=== PATIENT | male | born 2000 | race African-American/Black ===

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

== ENCOUNTER 2019-07-16 06:07 | Emergency (ER) | payer OTHER ==
[~2019-07-16] VITALS: Ht 175.3 cm; Wt 81.8 kg
[2019-07-16] MEDS ORDERED: KETOROLAC TROMETHAMINE 10 MG TABLET PO ONE (06:30)
[2019-07-16 07:05] LABS: BASOPHILS % (AUTO) 0.9 % (0.0-2.0); EOSINOPHILS % (AUTO) 7.5 % (1.0-6.0); HEMATOCRIT 44.9 % (41-53); HEMOGLOBIN 14.8 g/dL (13.5-17.5); LYMPHOCYTES # (AUTO) 0.9 K/uL (1.0-4.8); LYMPHOCYTES % (AUTO) 19.2 % (22.0-44.0); MEAN CORPUSCULAR HEMOGLOBIN 26.6 pg (26.0-34.0); MEAN CORPUSCULAR HGB CONC 32.9 G/dL (31.0-37.0); MEAN CORPUSCULAR VOLUME 81 fL (80-100); MONOCYTES # (AUTO) 0.4 K/uL (0.1-1.0); MONOCYTES % (AUTO) 9.6 % (2.0-9.0); NEUTROPHILS # (AUTO) 2.9 K/uL (1.8-7.7); NEUTROPHILS % (AUTO) 62.8 % (40.0-70.0); PLATELET COUNT (AUTO) 226 K/uL (150-450); RED BLOOD CELL COUNT(AUTO) 5.55 MIL/uL (4.50-5.90); RED CELL DISTRIBUTION WIDTH 14.5 % (11.5-14.5)
[2019-07-16 07:17] LABS: ANION GAP 6 mmol/L (8-16); CALCIUM, TOTAL 9.9 mg/dL (8.8-10.5); CARBON DIOXIDE 30 mmol/L (22-29); CHLORIDE 99 mmol/L (98-107); CREATININE 0.84 mg/dL (0.60-1.30); GLOMERULAR FILTR. RATE CALC > 60 mL/min (>60); GLUCOSE,RANDOM 294 mg/dL (70-110); POTASSIUM 4.1 mmol/L (3.5-5.1); SODIUM SERUM 135 mmol/L (136-145); UREA NITROGEN, BLOOD 10 mg/dL (7-18)
[2019-07-16 07:23] LABS: ALANINE AMINOTRANSFERASE 25 U/L (12-78); ALBUMIN 4.5 g/dL (3.4-5.0); ALKALINE PHOSPHATASE 102 U/L (46-116); ASPARTATE AMINOTRANSFERASE 17 U/L (15-37); BILIRUBIN,TOTAL 0.6 mg/dL (0.1-1.0); LIPASE 113 U/L (73-393); TOTAL PROTEIN, SERUM 8.8 g/dL (6.4-8.2)
[2019-07-16 08:20] VITALS: BP 111/59
[2019-07-16 08:53] LABS: APPEARANCE,URINE CLEAR (CLEAR); BILIRUBIN,URINE NEGATIVE (NEGATIVE); GLUCOSE, URINE (UA) >=1000 mg/dL (NEGATIVE); KETONES,URINE TRACE mg/dL (NEGATIVE); LEUKOCYTE ESTERASE ,URINE NEGATIVE (NEGATIVE); NITRATE,URINE NEGATIVE (NEGATIVE); OCCULT BLOOD,URINE NEGATIVE (NEGATIVE); PROTEIN,URINE NEGATIVE (NEGATIVE)
[2019-07-16 09:10] LABS: BACTERIA,URINE None Seen /HPF (None Seen); RBC,URINE None Seen /HPF (0-2); SQUAMOUS EPITHELIAL CELL,UR Rare /LPF (None Seen); WBC,URINE None Seen /HPF (0-5)
== END 2019-07-16 08:25 | disposition home or self-care (01) ==
LOC: EMS 06:07
DX: K59.00 Constipation, unspecified (principal); J45.909 Unspecified asthma, uncomplicated
CPT/HCPCS: 74176

== ENCOUNTER 2019-08-22 22:05 | Inpatient (IN) | payer OTHER ==
[~2019-08-22] VITALS: Ht 175.3 cm; Wt 76.0 kg
[2019-08-22 23:50] LABS: BASOPHILS % (AUTO) 0.9 % (0.0-2.0); EOSINOPHILS % (AUTO) 5.6 % (1.0-6.0); HEMATOCRIT 43.5 % (41-53); HEMOGLOBIN 14.5 g/dL (13.5-17.5); LYMPHOCYTES # (AUTO) 1.2 K/uL (1.0-4.8); LYMPHOCYTES % (AUTO) 22.4 % (22.0-44.0); MEAN CORPUSCULAR HEMOGLOBIN 27.2 pg (26.0-34.0); MEAN CORPUSCULAR HGB CONC 33.4 G/dL (31.0-37.0); MEAN CORPUSCULAR VOLUME 82 fL (80-100); MONOCYTES # (AUTO) 0.6 K/uL (0.1-1.0); MONOCYTES % (AUTO) 11.1 % (2.0-9.0); NEUTROPHILS # (AUTO) 3.3 K/uL (1.8-7.7); PLATELET COUNT (AUTO) 196 K/uL (150-450); RED BLOOD CELL COUNT(AUTO) 5.34 MIL/uL (4.50-5.90); RED CELL DISTRIBUTION WIDTH 15.3 % (11.5-14.5)
[2019-08-22 23:56] LABS: ANION GAP 22 mmol/L (8-16); CALCIUM, TOTAL 8.8 mg/dL (8.8-10.5); CARBON DIOXIDE 12 mmol/L (22-29); CHLORIDE 95 mmol/L (98-107); CREATININE 1.08 mg/dL (0.60-1.30); GLOMERULAR FILTR. RATE CALC > 60 mL/min (>60); GLUCOSE,RANDOM 356 mg/dL (70-110); POTASSIUM 3.7 mmol/L (3.5-5.1); SODIUM SERUM 129 mmol/L (136-145)
[2019-08-23 00:02] LABS: ALANINE AMINOTRANSFERASE 33 U/L (12-78); ALBUMIN 3.8 g/dL (3.4-5.0); ALKALINE PHOSPHATASE 130 U/L (46-116); ASPARTATE AMINOTRANSFERASE 23 U/L (15-37); BILIRUBIN,TOTAL 0.4 mg/dL (0.1-1.0); TOTAL PROTEIN, SERUM 8.8 g/dL (6.4-8.2); UREA NITROGEN, BLOOD 6 mg/dL (7-18)
[2019-08-23] MEDS ORDERED: SODIUM CHLORIDE 0.9% 2,000 ML IV ONE ×3 (00:30→05:45)
[2019-08-23] MEDS ORDERED: ONDANSETRON HCL 4 MG/2 ML VIAL IVP ONE (00:30)
[2019-08-23] MEDS ORDERED: INSULIN REGULAR, HUMAN 100 UNITS/ML IVP ONE ×2 (00:30→05:45)
[2019-08-23 01:27] LABS: GLUCOSE,POINT OF CARE 289 MG/DL (70-110)
[2019-08-23 04:43] LABS: ANION GAP 18 mmol/L (8-16); CALCIUM, TOTAL 7.7 mg/dL (8.8-10.5); CARBON DIOXIDE 15 mmol/L (22-29); CHLORIDE 101 mmol/L (98-107); CREATININE 0.96 mg/dL (0.60-1.30); GLOMERULAR FILTR. RATE CALC > 60 mL/min (>60); GLUCOSE,RANDOM 267 mg/dL (70-110); POTASSIUM 3.7 mmol/L (3.5-5.1); SODIUM SERUM 134 mmol/L (136-145); UREA NITROGEN, BLOOD 4 mg/dL (7-18)
[2019-08-23 04:46] LABS: GLUCOSE,POINT OF CARE 285 MG/DL (70-110)
[2019-08-23 05:27] LABS: ABG A-A DIFF O2 28.9 mmHg (10-20.0); ABG BASE EXCESS -18.8 mmol/L (-2.0-3.0); ABG CARBOXYHEMOGLOBIN 0.7 % (0.0-3.0); ABG METHEMOGLOBIN 0.3 % (0.0-1.5); ABG OXYGEN CONTENT 20.1 mL/dL (15.0-23.0); ABG OXYGEN SATURATION 96.8 % (95.0-98.0); ABG OXYHEMOGLOBIN 95.8 % (94.0-100.0); ABG PCO2 25 mmHg (35-45); ABG TOTAL HEMOGLOBIN 14.9 G/dL (12.0-18.0); PO2, ARTERIAL BG 91.2 mmHg (80.0-100.0); SOURCE, BLOOD GAS ARTERIAL; TEMPERATURE, FAHRENHEIT, BG 98.3 FAHREN (96.0-98.6)
[2019-08-23 05:28] LABS: ABG PH 7.194 (7.350-7.450); SITE, BLOOD GAS RT FEMORAL
[2019-08-23 05:29] LABS: O2 DEVICE,BLOOD GAS ROOM AIR (ROOM AIR)
[2019-08-23] MEDS ORDERED: SODIUM BICARBONATE [ADULT] 8.4% 50 MEQ/50 ML SYRINGE IVP ONE (05:45)
[2019-08-23 05:48] LABS: PHOSPHORUS 1.9 mg/dL (2.5-4.9)
[2019-08-23] MEDS ORDERED: DEXTROSE 5%-0.45% SODIUM CHL 1,000 ML IV PRN (06:05)
[2019-08-23] MEDS ORDERED: POTASSIUM CHL 20 MEQ/0.45% NS 1,000 ML IV PRN (06:05)
[2019-08-23] MEDS ORDERED: SODIUM CHLORIDE 0.9% 1,000 ML IV SCH (06:05)
[2019-08-23] MEDS ORDERED: SODIUM CHLORIDE 0.45% 1,000 ML IV PRN (06:05)
[2019-08-23] MEDS ORDERED: INSULIN REGULAR, HUMAN 100 UNITS/ML IVP PRN (06:15)
[2019-08-23] MEDS ORDERED: DEXTROSE 50%-WATER 25 GM/50 ML SYRINGE IVP PRN (06:15)
[2019-08-23] MEDS ORDERED: ACETAMINOPHEN 325 MG TABLET PO PRN ×2 (06:15→09:45)
[2019-08-23] MEDS ORDERED: ONDANSETRON HCL 4 MG/2 ML VIAL IVP PRN ×2 (06:15→09:45)
[2019-08-23] MEDS ORDERED: 0.9% SODIUM CHLORIDE 10 ML SYRINGE IVP PRN (06:15)
[2019-08-23] MEDS: INSULIN REGULAR, HUMAN 100 UNITS in SODIUM CHLORIDE 0.9% 99 ML IV PRN ×4 (06:37→21:38)
[2019-08-23] MEDS: MAGNESIUM OXIDE 400 MG TABLET PO SCH ×3 (08:03→21:29)
[2019-08-23] MEDS: DEXTROSE 5%-0.45% SODIUM CHL 1,000 ML IV SCH ×4 (09:07→21:00)
[2019-08-23] MEDS ORDERED: POTASSIUM CHLORIDE 20 MEQ ER TABLET PO PRN (09:30)
[2019-08-23 09:42] LABS: BASOPHILS % (AUTO) 0.7 % (0.0-2.0); EOSINOPHILS % (AUTO) 6.3 % (1.0-6.0); HEMOGLOBIN 12.7 g/dL (13.5-17.5); LYMPHOCYTES # (AUTO) 1.3 K/uL (1.0-4.8); LYMPHOCYTES % (AUTO) 23.9 % (22.0-44.0); MEAN CORPUSCULAR HEMOGLOBIN 27.5 pg (26.0-34.0); MEAN CORPUSCULAR HGB CONC 34.3 G/dL (31.0-37.0); MEAN CORPUSCULAR VOLUME 80 fL (80-100); MONOCYTES # (AUTO) 0.6 K/uL (0.1-1.0); MONOCYTES % (AUTO) 11.9 % (2.0-9.0); NEUTROPHILS # (AUTO) 3.1 K/uL (1.8-7.7); NEUTROPHILS % (AUTO) 57.2 % (40.0-70.0); PLATELET COUNT (AUTO) 178 K/uL (150-450); RED BLOOD CELL COUNT(AUTO) 4.63 MIL/uL (4.50-5.90); RED CELL DISTRIBUTION WIDTH 15.3 % (11.5-14.5)
[2019-08-23] MEDS ORDERED: IPRATROPIUM BROMIDE 0.5 MG/2.5 ML NEB SOLUTION NEB PRN (09:45)
[2019-08-23] MEDS ORDERED: ALBUTEROL SULFATE 2.5 MG/0.5 ML NEB SOLUTION NEB PRN (09:45)
[2019-08-23] MEDS ORDERED: DOCUSATE SODIUM 100 MG CAPSULE PO PRN (09:45)
[2019-08-23] MEDS ORDERED: BISACODYL 10 MG RECTAL RECTAL SUPPOSITORY PR PRN (09:45)
[2019-08-23] MEDS ORDERED: MAGNESIUM HYDROXIDE SUSPENSION 30 ML UDCUP PO PRN (09:45)
[2019-08-23 10:01] LABS: ANION GAP 15 mmol/L (8-16); CALCIUM, TOTAL 7.2 mg/dL (8.8-10.5); CARBON DIOXIDE 17 mmol/L (22-29); CHLORIDE 99 mmol/L (98-107); CREATININE 0.95 mg/dL (0.60-1.30); GLOMERULAR FILTR. RATE CALC > 60 mL/min (>60); GLUCOSE,RANDOM 371 mg/dL (70-110); SODIUM SERUM 131 mmol/L (136-145); UREA NITROGEN, BLOOD 3 mg/dL (7-18)
[2019-08-23 10:09] LABS: POTASSIUM 2.7 mmol/L (3.5-5.1)
[2019-08-23 10:15] VITALS: BP 126/73
[2019-08-23 10:28] LABS: ABG A-A DIFF O2 15.3 mmHg (10-20.0); ABG BASE EXCESS -10.8 mmol/L (-2.0-3.0); ABG CARBOXYHEMOGLOBIN 0.6 % (0.0-3.0); ABG METHEMOGLOBIN 0.3 % (0.0-1.5); ABG OXYGEN CONTENT 19.1 mL/dL (15.0-23.0); ABG OXYGEN SATURATION 98.2 % (95.0-98.0); ABG OXYHEMOGLOBIN 97.3 % (94.0-100.0); ABG PCO2 30 mmHg (35-45); ABG PH 7.326 (7.350-7.450); ABG TOTAL HEMOGLOBIN 13.9 G/dL (12.0-18.0); SOURCE, BLOOD GAS ARTERIAL; TEMPERATURE, FAHRENHEIT, BG 97.6 FAHREN (96.0-98.6)
[2019-08-23 10:29] LABS: O2 DEVICE,BLOOD GAS ROOM AIR (ROOM AIR); SITE, BLOOD GAS RT RADIAL
[2019-08-23] MEDS: POTASSIUM CHL 10 MEQ/WATER 50 ML IV PRN ×5 (10:44→23:08)
[2019-08-23 12:00] VITALS: BP 114/84
[2019-08-23 14:07] LABS: GLUCOSE,POINT OF CARE 257 MG/DL (70-110)
[2019-08-23 14:07] LABS: GLUCOSE,POINT OF CARE 228 MG/DL (70-110)
[2019-08-23 14:07] LABS: GLUCOSE,POINT OF CARE 189 MG/DL (70-110)
[2019-08-23 14:08] LABS: GLUCOSE,POINT OF CARE 186 MG/DL (70-110)
[2019-08-23 15:51] LABS: ANION GAP 7 mmol/L (8-16); CARBON DIOXIDE 21 mmol/L (22-29); CHLORIDE 103 mmol/L (98-107); CREATININE 0.79 mg/dL (0.60-1.30); GLOMERULAR FILTR. RATE CALC > 60 mL/min (>60); GLUCOSE,RANDOM 250 mg/dL (70-110); SODIUM SERUM 131 mmol/L (136-145); UREA NITROGEN, BLOOD 1 mg/dL (7-18)
[2019-08-23 16:00] VITALS: BP 119/85
[2019-08-23 16:55] LABS: GLUCOSE,POINT OF CARE 157 MG/DL (70-110)
[2019-08-23 16:55] LABS: GLUCOSE,POINT OF CARE 251 MG/DL (70-110)
[2019-08-23 16:55] LABS: GLUCOSE,POINT OF CARE 257 MG/DL (70-110)
[2019-08-23 17:00] LABS: GLUCOSE,POINT OF CARE 225 MG/DL (70-110)
[2019-08-23 17:00] LABS: GLUCOSE,POINT OF CARE 149 MG/DL (70-110)
[2019-08-23 17:00] LABS: GLUCOSE,POINT OF CARE 241 MG/DL (70-110)
[2019-08-23] MEDS ORDERED: PNEUMOCOCCAL VACCINE POLYVALENT 0.5 ML VIAL [PPSV23] IM ONE (17:15)
[2019-08-23 18:40] LABS: GLUCOSE,POINT OF CARE 239 MG/DL (70-110)
[2019-08-23] MEDS: POTASSIUM CHLORIDE 40 MEQ in SODIUM CHLORIDE 0.45% 1,000 ML IV PRN ×2 (19:15→23:37)
[2019-08-23 19:49] LABS: ANION GAP 7 mmol/L (8-16); CALCIUM, TOTAL 8.3 mg/dL (8.8-10.5); CARBON DIOXIDE 23 mmol/L (22-29); CHLORIDE 101 mmol/L (98-107); GLOMERULAR FILTR. RATE CALC > 60 mL/min (>60); GLUCOSE,RANDOM 234 mg/dL (70-110); POTASSIUM 3.1 mmol/L (3.5-5.1); SODIUM SERUM 131 mmol/L (136-145); UREA NITROGEN, BLOOD 2 mg/dL (7-18)
[2019-08-23 19:54] LABS: GLUCOSE,POINT OF CARE 220 MG/DL (70-110)
[2019-08-23 20:00] VITALS: BP 114/65
[2019-08-23 20:43] LABS: GLUCOSE,POINT OF CARE 240 MG/DL (70-110)
[2019-08-23] MEDS ORDERED: SODIUM CHLORIDE 0.9% 250 ML IV ONE (20:48)
[2019-08-23] MEDS: PANTOPRAZOLE SODIUM 40 MG DR TABLET PO SCH (21:29)
[2019-08-23 21:46] LABS: GLUCOSE,POINT OF CARE 181 MG/DL (70-110)
[2019-08-23 22:43] LABS: GLUCOSE,POINT OF CARE 133 MG/DL (70-110)
[2019-08-24] VITALS (7 sets, daily range): BP systolic 106–131; BP diastolic 49–90
[2019-08-24 01:09] LABS: GLUCOSE,POINT OF CARE 208 MG/DL (70-110)
[2019-08-24 01:09] LABS: GLUCOSE,POINT OF CARE 210 MG/DL (70-110)
[2019-08-24 01:41] LABS: ANION GAP 7 mmol/L (8-16); CALCIUM, TOTAL 8.5 mg/dL (8.8-10.5); CARBON DIOXIDE 24 mmol/L (22-29); CHLORIDE 106 mmol/L (98-107); CREATININE 0.74 mg/dL (0.60-1.30); GLOMERULAR FILTR. RATE CALC > 60 mL/min (>60); GLUCOSE,RANDOM 195 mg/dL (70-110); POTASSIUM 3.5 mmol/L (3.5-5.1); SODIUM SERUM 137 mmol/L (136-145); UREA NITROGEN, BLOOD 3 mg/dL (7-18)
[2019-08-24] MEDS: POTASSIUM CHL 10 MEQ/WATER 50 ML IV PRN ×3 (01:56→04:05)
[2019-08-24] MEDS: POTASSIUM CHLORIDE 40 MEQ in SODIUM CHLORIDE 0.45% 1,000 ML IV PRN (03:30)
[2019-08-24 03:46] LABS: GLUCOSE,POINT OF CARE 181 MG/DL (70-110)
[2019-08-24 03:46] LABS: GLUCOSE,POINT OF CARE 123 MG/DL (70-110)
[2019-08-24 03:46] LABS: GLUCOSE,POINT OF CARE 182 MG/DL (70-110)
[2019-08-24 04:56] LABS: GLUCOSE,POINT OF CARE 77 MG/DL (70-110)
[2019-08-24 05:43] LABS: GLUCOSE,POINT OF CARE 155 MG/DL (70-110)
[2019-08-24 06:15] LABS: BASOPHILS % (AUTO) 0.5 % (0.0-2.0); EOSINOPHILS % (AUTO) 4.2 % (1.0-6.0); HEMATOCRIT 42.9 % (41-53); HEMOGLOBIN 14.7 g/dL (13.5-17.5); LYMPHOCYTES # (AUTO) 0.7 K/uL (1.0-4.8); LYMPHOCYTES % (AUTO) 15.3 % (22.0-44.0); MEAN CORPUSCULAR HEMOGLOBIN 26.8 pg (26.0-34.0); MEAN CORPUSCULAR HGB CONC 34.2 G/dL (31.0-37.0); MEAN CORPUSCULAR VOLUME 78 fL (80-100); MONOCYTES # (AUTO) 0.5 K/uL (0.1-1.0); MONOCYTES % (AUTO) 11.5 % (2.0-9.0); NEUTROPHILS # (AUTO) 3.2 K/uL (1.8-7.7); NEUTROPHILS % (AUTO) 68.5 % (40.0-70.0); PLATELET COUNT (AUTO) 173 K/uL (150-450); RED BLOOD CELL COUNT(AUTO) 5.47 MIL/uL (4.50-5.90); RED CELL DISTRIBUTION WIDTH 15.2 % (11.5-14.5)
[2019-08-24 07:07] LABS: ALANINE AMINOTRANSFERASE 29 U/L (12-78); ALBUMIN 3.4 g/dL (3.4-5.0); ALKALINE PHOSPHATASE 109 U/L (46-116); ANION GAP 7 mmol/L (8-16); ASPARTATE AMINOTRANSFERASE 29 U/L (15-37); BILIRUBIN,TOTAL 0.6 mg/dL (0.1-1.0); CALCIUM, TOTAL 8.9 mg/dL (8.8-10.5); CARBON DIOXIDE 25 mmol/L (22-29); CHLORIDE 102 mmol/L (98-107); CHOL/HDL RATIO 4.5 (4.2-7.3); CHOLESTEROL 188 mg/dL (131-200); CREATININE 0.74 mg/dL (0.60-1.30); FREE T4 (FREE THYROXINE) 1.14 ng/dL (0.76-1.46); GLOMERULAR FILTR. RATE CALC > 60 mL/min (>60); GLUCOSE,RANDOM 190 mg/dL (70-110); HDL CHOLESTEROL 42 mg/dL (40-60); LDL CHOL (CALC.) 133 mg/dL (0-130); POTASSIUM 3.6 mmol/L (3.5-5.1); SODIUM SERUM 134 mmol/L (136-145); THYROID STIMULATING HORMONE 1.78 uIU/mL (0.36-3.74); TOTAL PROTEIN, SERUM 7.8 g/dL (6.4-8.2); TRIGLYCERIDES 64 mg/dL (15-150); UREA NITROGEN, BLOOD 1 mg/dL (7-18)
[2019-08-24 07:25] LABS: PHOSPHORUS 0.8 mg/dL (2.5-4.9)
[2019-08-24] MEDS ORDERED: DEXTROSE 50%-WATER 25 GM/50 ML SYRINGE IVP PRN (08:30)
[2019-08-24] MEDS: SODIUM CHLORIDE 0.9% 1,000 ML IV SCH (09:42)
[2019-08-24] MEDS: PANTOPRAZOLE SODIUM 40 MG DR TABLET PO SCH (09:43)
[2019-08-24] MEDS: POTASSIUM PHOS/SODIUM PHOS MIXTURE 1 POWDER PACKET PO SCH ×3 (09:43→20:35)
[2019-08-24] MEDS: INSULIN GLARGINE,HUM.REC.ANLOG 100 UNITS/ML SQ SCH ×2 (09:44→20:34)
[2019-08-24 11:06] LABS: GLUCOSE,POINT OF CARE 203 MG/DL (70-110)
[2019-08-24] MEDS: INSULIN LISPRO 100 UNITS/ML SQ PRN ×3 (12:00→20:35)
[2019-08-24] MEDS ORDERED: MAGNESIUM SULFATE 4 GM/WATER 100 ML IV PRN (13:00)
[2019-08-24] MEDS ORDERED: MAGNESIUM SULFATE 2 GM/WATER 50 ML IV PRN (13:00)
[2019-08-25 05:13] VITALS: BP 113/65
[2019-08-25] MEDS: SODIUM CHLORIDE 0.9% 1,000 ML IV SCH (05:15)
[2019-08-25] MEDS: INSULIN LISPRO 100 UNITS/ML SQ PRN ×2 (05:37→12:01)
[2019-08-25 05:38] LABS: GLUCOSE,POINT OF CARE 182 MG/DL (70-110)
[2019-08-25 05:38] LABS: GLUCOSE,POINT OF CARE 183 MG/DL (70-110)
[2019-08-25 05:40] LABS: GLUCOSE,POINT OF CARE 245 MG/DL (70-110)
[2019-08-25 07:15] VITALS: BP 134/65
[2019-08-25] MEDS: PANTOPRAZOLE SODIUM 40 MG DR TABLET PO SCH (09:50)
[2019-08-25] MEDS: MAGNESIUM OXIDE 400 MG TABLET PO PRN ×3 (09:50→15:24)
[2019-08-25] MEDS: POTASSIUM PHOS/SODIUM PHOS MIXTURE 1 POWDER PACKET PO SCH (09:50)
[2019-08-25] MEDS: INSULIN GLARGINE,HUM.REC.ANLOG 100 UNITS/ML SQ SCH (09:53)
[2019-08-25 11:16] LABS: GLUCOMETER DEV NAME(LOC) 4E.2; GLUCOSE,POINT OF CARE 310 MG/DL (70-110)
[2019-08-25 11:16] LABS: GLUCOMETER DEV NAME(LOC) 4E.2; GLUCOSE,POINT OF CARE 256 MG/DL (70-110)
[2019-08-25 11:36] VITALS: BP 122/56
[2019-08-25] MEDS ORDERED: INSLAN SQ (11:47)
[2019-08-25 12:03] LABS: GLUCOMETER DEV NAME(LOC) 4E.2; GLUCOSE,POINT OF CARE 236 MG/DL (70-110)
[2019-08-25 15:13] VITALS: BP 118/58
[2019-08-25 20:24] LABS: GLUCOMETER DEV NAME(LOC) 6N.2; GLUCOSE,POINT OF CARE 181 MG/DL (70-110)
== END 2019-08-25 15:44 | disposition home or self-care (01) | DRG 420 ==
LOC: EMS 22:05 → ICU 08-23 08:43 → 4E 08-24 16:00
PROVIDERS: ADMIT Internal Medicine; ATTEND Internal Medicine
PROC: 3E0234Z Introduction of Serum, Toxoid and Vaccine into Muscle, Percutaneous Approach (ICD-10-PCS; principal; 2019-08-23)
DX: E11.10 Type 2 diabetes mellitus with ketoacidosis without coma (principal); E86.0 Dehydration; F84.5 Asperger's syndrome; J06.9 Acute upper respiratory infection, unspecified; J45.909 Unspecified asthma, uncomplicated; Z83.3 Family history of diabetes mellitus; Z79.899 Other long term (current) drug therapy; Z23 Encounter for immunization
CPT/HCPCS: 36600; 82805; 83036; 83735; 84100; 84439; 84443; 87081; 90732; 96374; 96375; 99291; G0378; J1815; J2405; J3475; J3480; J3490; J7030; J7050